=== PATIENT | female | born 1965 | race Caucasian/White ===

== ENCOUNTER 2017-05-23 19:05 | Emergency (ER) | payer OTHER ==
[~2017-05-23] VITALS: Ht 157.5 cm; Wt 81.0 kg
[~2017-05-23 19:05] MED LIST: ALPR0.5T8 PO; INSU100V12 SQ; METF500T4 PO; METO50 PO; OXYC-522 PO; OXYC-530 PO; VENL-67 PO; VITAD1000 PO
[2017-05-23] MEDS ORDERED: HYDR2 PO (19:12)
[2017-05-23] MEDS ORDERED: SODIUM CHLORIDE 0.9% 1,000 ML IV ONE (19:15)
[2017-05-23] MEDS ORDERED: INSULIN REGULAR, HUMAN 100 UNITS/ML IVP ONE (19:15)
[2017-05-23 19:47] LABS: BASOPHILS % (AUTO) 0.4 % (0.0-2.0); EOSINOPHILS % (AUTO) 1.3 % (1.0-6.0); HEMATOCRIT 34.3 % (36-46); HEMOGLOBIN 11.6 g/dL (12.0-16.0); LYMPHOCYTES # (AUTO) 2.4 K/uL (1.0-4.8); LYMPHOCYTES % (AUTO) 29.7 % (22.0-44.0); MEAN CORPUSCULAR HEMOGLOBIN 30.5 pg (26.0-34.0); MEAN CORPUSCULAR HGB CONC 33.7 G/dL (31.0-37.0); MEAN CORPUSCULAR VOLUME 90 fL (80-100); MONOCYTES # (AUTO) 0.3 K/uL (0.1-1.0); MONOCYTES % (AUTO) 3.8 % (2.0-9.0); NEUTROPHILS # (AUTO) 5.2 K/uL (1.8-7.7); NEUTROPHILS % (AUTO) 64.8 % (40.0-70.0); PLATELET COUNT (AUTO) 248 K/uL (150-450); RED BLOOD CELL COUNT(AUTO) 3.79 MIL/uL (4.00-5.20); RED CELL DISTRIBUTION WIDTH 13.7 % (11.5-14.5)
[2017-05-23 19:58] LABS: ANION GAP 15 mmol/L (8-16); CALCIUM, TOTAL 9.3 mg/dL (8.8-10.5); CARBON DIOXIDE 22 mmol/L (22-29); CHLORIDE 105 mmol/L (98-107); CREATININE 0.73 mg/dL (0.60-1.30); GLOMERULAR FILTR. RATE CALC > 60 mL/min (>60); POTASSIUM 3.4 mmol/L (3.5-5.1); SODIUM SERUM 142 mmol/L (136-145); UREA NITROGEN, BLOOD 7 mg/dL (7-18)
[2017-05-23 20:03] LABS: ALANINE AMINOTRANSFERASE 14 U/L (12-78); ALBUMIN 3.4 g/dL (3.4-5.0); ASPARTATE AMINOTRANSFERASE 21 U/L (15-37); BILIRUBIN,TOTAL 0.1 mg/dL (0.1-1.0); TOTAL PROTEIN, SERUM 7.6 g/dL (6.4-8.2)
[2017-05-23 20:15] LABS: APPEARANCE,URINE CLEAR (CLEAR); GLUCOSE, URINE (UA) >=1000 mg/dL (NEGATIVE); KETONES,URINE NEGATIVE (NEGATIVE); LEUKOCYTE ESTERASE ,URINE NEGATIVE (NEGATIVE); OCCULT BLOOD,URINE NEGATIVE (NEGATIVE); PH,URINE 6.5 (5.0-8.0); PROTEIN,URINE NEGATIVE (NEGATIVE)
[2017-05-23 20:16] LABS: ADD UA MICROSCOPIC YES
[2017-05-23 20:24] LABS: RBC,URINE 0-2 /HPF (0-2); SQUAMOUS EPITHELIAL CELL,UR Few /LPF (None Seen); WBC,URINE 0-2 /HPF (0-5)
[2017-05-23 22:22] VITALS: BP 129/80
[2017-05-24 10:01] LABS: GLUCOSE,POINT OF CARE 192 MG/DL (70-110)
== END 2017-05-23 22:25 | disposition home or self-care (01) ==
LOC: MERGE 19:06 → EMS 19:06
DX: G89.29 Other chronic pain (principal); M54.5 Low back pain; E11.65 Type 2 diabetes mellitus with hyperglycemia; F17.210 Nicotine dependence, cigarettes, uncomplicated; F41.9 Anxiety disorder, unspecified; F10.10 Alcohol abuse, uncomplicated; Z88.1 Allergy status to other antibiotic agents
CPT/HCPCS: 36415; 80053; 81001; 82962; 85025; 96361; 96374; 99284; 99406; G0480; J1815; J7030

== ENCOUNTER 2017-06-02 20:33 | Emergency (ER) | payer OTHER ==
[~2017-06-02] VITALS: Ht 165.1 cm; Wt 81.8 kg
[~2017-06-02 20:33] MED LIST changes: +HYDR2 PO
[2017-06-02] MEDS ORDERED: SODIUM CHLORIDE 0.9% 1,000 ML IV ONE (21:00)
[2017-06-02 21:29] LABS: BASOPHILS % (AUTO) 0.5 % (0.0-2.0); EOSINOPHILS % (AUTO) 1.5 % (1.0-6.0); HEMATOCRIT 37.2 % (36-46); HEMOGLOBIN 12.6 g/dL (12.0-16.0); LYMPHOCYTES # (AUTO) 2.6 K/uL (1.0-4.8); LYMPHOCYTES % (AUTO) 47.4 % (22.0-44.0); MEAN CORPUSCULAR HEMOGLOBIN 30.2 pg (26.0-34.0); MEAN CORPUSCULAR HGB CONC 33.8 G/dL (31.0-37.0); MEAN CORPUSCULAR VOLUME 89 fL (80-100); MONOCYTES # (AUTO) 0.2 K/uL (0.1-1.0); MONOCYTES % (AUTO) 3.8 % (2.0-9.0); NEUTROPHILS # (AUTO) 2.6 K/uL (1.8-7.7); NEUTROPHILS % (AUTO) 46.8 % (40.0-70.0); PLATELET COUNT (AUTO) 225 K/uL (150-450); RED BLOOD CELL COUNT(AUTO) 4.16 MIL/uL (4.00-5.20); RED CELL DISTRIBUTION WIDTH 14.2 % (11.5-14.5); WHITE BLOOD COUNT (AUTO) 5.5 K/uL (4.5-11.0)
[2017-06-02 21:36] LABS: PROTHROMBIN TIME 10.6 SEC (9.4-11.6)
[2017-06-02 21:37] LABS: ANION GAP 6 mmol/L (8-16); CALCIUM, TOTAL 8.5 mg/dL (8.8-10.5); CARBON DIOXIDE 31 mmol/L (22-29); CHLORIDE 106 mmol/L (98-107); GLOMERULAR FILTR. RATE CALC > 60 mL/min (>60); POTASSIUM 3.3 mmol/L (3.5-5.1); SODIUM SERUM 143 mmol/L (136-145); UREA NITROGEN, BLOOD 9 mg/dL (7-18)
[2017-06-02 21:43] LABS: ALANINE AMINOTRANSFERASE 35 U/L (12-78); ALBUMIN 3.2 g/dL (3.4-5.0); ASPARTATE AMINOTRANSFERASE 52 U/L (15-37); BILIRUBIN,TOTAL 0.2 mg/dL (0.1-1.0)
[2017-06-02 22:14] LABS: LACTIC ACID 2.3 mmol/L (0.4-2.0)
[2017-06-02 22:38] VITALS: BP 146/81
[2017-06-02 23:22] LABS: REFLEX LACTIC ACID? YES YES
== END 2017-06-02 22:53 | disposition home or self-care (01) ==
LOC: EMS 20:34 → MERGE 20:34 → EMS 22:53
DX: F10.129 Alcohol abuse with intoxication, unspecified (principal); E11.9 Type 2 diabetes mellitus without complications; I10 Essential (primary) hypertension; F17.210 Nicotine dependence, cigarettes, uncomplicated; Z88.1 Allergy status to other antibiotic agents; Z79.4 Long term (current) use of insulin
CPT/HCPCS: 36415; 80053; 83605; 83690; 85025; 85610; 96360; 99284; J7030

== ENCOUNTER 2017-06-06 03:53 | Emergency (ER) | payer OTHER ==
[~2017-06-06] VITALS: Ht 160 cm; Wt 77.0 kg
[2017-06-06] MEDS ORDERED: CloNIDine HCL 0.1 MG TABLET PO ONE (04:30)
[2017-06-06] MEDS ORDERED: PROMETHAZINE HCL 25 MG/ML VIAL IM ONE (04:30)
[2017-06-06] MEDS ORDERED: KETOROLAC TROMETHAMINE 30 MG/ML VIAL IM ONE (04:45)
[2017-06-06 06:04] VITALS: BP 127/75
[2017-06-06 09:11] LABS: GLUCOSE,POINT OF CARE 209 MG/DL (70-110)
== END 2017-06-06 06:07 | disposition home or self-care (01) ==
LOC: EMS 03:54 → MERGE 03:54 → EMS 06:07
DX: F11.23 Opioid dependence with withdrawal (principal); M54.5 Low back pain; G89.29 Other chronic pain; F17.210 Nicotine dependence, cigarettes, uncomplicated; E11.9 Type 2 diabetes mellitus without complications; I10 Essential (primary) hypertension; Z88.1 Allergy status to other antibiotic agents
CPT/HCPCS: 82962; 96372; 99284; J1885; J2550

== ENCOUNTER 2017-06-06 09:41 | Emergency (ER) | payer OTHER ==
[~2017-06-06] VITALS: Ht 160 cm; Wt 77.3 kg
[2017-06-06] MEDS ORDERED: ACETAMINOPHEN 325 MG TABLET PO ONE (10:00)
[2017-06-06 11:03] LABS: GLUCOSE,POINT OF CARE 332 MG/DL (70-110)
[2017-06-06 11:53] VITALS: BP 114/74
== END 2017-06-06 11:54 | disposition home or self-care (01) ==
LOC: MERGE 09:47 → EMS 09:47
DX: T51.91XA Toxic effect of unspecified alcohol, accidental (unintentional), initial encounter (principal); F10.129 Alcohol abuse with intoxication, unspecified; G89.29 Other chronic pain; M54.5 Low back pain; F17.210 Nicotine dependence, cigarettes, uncomplicated; F41.9 Anxiety disorder, unspecified; F32.9 Major depressive disorder, single episode, unspecified; E11.9 Type 2 diabetes mellitus without complications; I10 Essential (primary) hypertension; Z88.1 Allergy status to other antibiotic agents; Y92.89 Other specified places as the place of occurrence of the external cause
CPT/HCPCS: 82962; 99283

== ENCOUNTER 2017-06-06 15:09 | Emergency (ER) | payer OTHER ==
[~2017-06-06] VITALS: Ht 167.6 cm; Wt 67.0 kg
[2017-06-06] MEDS ORDERED: LIDOCAINE HCL 5% TRANSDERMAL PATCH TD ONE (20:00)
[2017-06-07 00:39] VITALS: BP 122/80
== END 2017-06-07 01:05 | disposition home or self-care (01) ==
LOC: EMS 15:10 → MERGE 15:10 → EMS 06-07 01:05
DX: F10.129 Alcohol abuse with intoxication, unspecified (principal); E11.9 Type 2 diabetes mellitus without complications; I10 Essential (primary) hypertension; F17.210 Nicotine dependence, cigarettes, uncomplicated; Z88.1 Allergy status to other antibiotic agents; Y90.8 Blood alcohol level of 240 mg/100 ml or more
CPT/HCPCS: 36415; 99284; G0480

== ENCOUNTER 2017-08-21 01:14 | Emergency (ER) | payer OTHER ==
[~2017-08-21] VITALS: Ht 165.1 cm; Wt 77.3 kg
[~2017-08-21 01:14] MED LIST changes: -OXYC-522 PO; -OXYC-530 PO; -VITAD1000 PO
[2017-08-21 01:33] LABS: GLUCOSE,POINT OF CARE 200 MG/DL (70-110)
[2017-08-21] MEDS ORDERED: MORPHINE SULFATE 4 MG/ML SYRINGE IM ONE (04:15)
[2017-08-21] MEDS ORDERED: ONDANSETRON HCL 4 MG/2 ML VIAL IM ONE (04:15)
[2017-08-21 05:22] VITALS: BP 124/63
== END 2017-08-21 06:33 | disposition home or self-care (01) ==
LOC: MERGE 01:16 → EMS 01:16
DX: S32.040A Wedge compression fracture of fourth lumbar vertebra, initial encounter for closed fracture (principal); S22.080A Wedge compression fracture of T11-T12 vertebra, initial encounter for closed fracture; S00.03XA Contusion of scalp, initial encounter; E11.9 Type 2 diabetes mellitus without complications; I10 Essential (primary) hypertension; F17.210 Nicotine dependence, cigarettes, uncomplicated; Z88.6 Allergy status to analgesic agent; W18.30XA Fall on same level, unspecified, initial encounter; Y93.89 Activity, other specified; Y92.89 Other specified places as the place of occurrence of the external cause; Y99.8 Other external cause status
CPT/HCPCS: 70450; 72100; 82962; 96372; 99284; J2270; J2405

== ENCOUNTER 2017-08-25 07:15 | Emergency (ER) | payer OTHER ==
[~2017-08-25] VITALS: Ht 167.6 cm; Wt 77.3 kg
[~2017-08-25 07:15] MED LIST changes: -METF500T4 PO
[2017-08-25] MEDS ORDERED: INSLAN SQ (07:25)
[2017-08-25] MEDS ORDERED: INSNOV SQ (07:25)
[2017-08-25] MEDS ORDERED: HYDR-309 PO (07:25)
[2017-08-25 07:27] LABS: GLUCOSE,POINT OF CARE 240 MG/DL (70-110)
[2017-08-25 07:58] LABS: BASOPHILS % (AUTO) 1.2 % (0.0-2.0); EOSINOPHILS % (AUTO) 2.3 % (1.0-6.0); HEMATOCRIT 36.3 % (36-46); HEMOGLOBIN 12.4 g/dL (12.0-16.0); LYMPHOCYTES # (AUTO) 2.9 K/uL (1.0-4.8); LYMPHOCYTES % (AUTO) 47.5 % (22.0-44.0); MEAN CORPUSCULAR HEMOGLOBIN 30.7 pg (26.0-34.0); MEAN CORPUSCULAR HGB CONC 34.2 G/dL (31.0-37.0); MEAN CORPUSCULAR VOLUME 90 fL (80-100); MONOCYTES # (AUTO) 0.3 K/uL (0.1-1.0); MONOCYTES % (AUTO) 4.3 % (2.0-9.0); NEUTROPHILS # (AUTO) 2.7 K/uL (1.8-7.7); NEUTROPHILS % (AUTO) 44.7 % (40.0-70.0); PLATELET COUNT (AUTO) 393 K/uL (150-450); RED BLOOD CELL COUNT(AUTO) 4.04 MIL/uL (4.00-5.20); RED CELL DISTRIBUTION WIDTH 16.7 % (11.5-14.5)
[2017-08-25] MEDS ORDERED: MAGNESIUM SULFATE 2 GM, MVI, ADULT NO.1 WITH VIT K 10 ML, THIAMINE HCL 100 MG, FOLIC AC... IV ONE ×5 (08:00)
[2017-08-25 08:05] LABS: AMPHET/METH SCREEN,URINE NEGATIVE (NEGATIVE); BARBITURATE SCREEN, URINE NEGATIVE (NEGATIVE); BENZODIAZEPINES SCREEN,URINE POSITIVE (NEGATIVE); CANNABINOID SCREEN,URINE NEGATIVE (NEGATIVE); COCAINE SCREEN,URINE NEGATIVE (NEGATIVE); METHADONE SCREEN, URINE NEGATIVE (NEGATIVE); OPIATE SCREEN,URINE POSITIVE (NEGATIVE)
[2017-08-25 08:07] LABS: PHENCYCLIDINE SCREEN,URINE NEGATIVE (NEGATIVE)
[2017-08-25 08:08] LABS: ANION GAP 11 mmol/L (8-16); CARBON DIOXIDE 27 mmol/L (22-29); CHLORIDE 107 mmol/L (98-107); GLOMERULAR FILTR. RATE CALC > 60 mL/min (>60); GLUCOSE,RANDOM 245 mg/dL (70-110); POTASSIUM 3.6 mmol/L (3.5-5.1); SODIUM SERUM 145 mmol/L (136-145); UREA NITROGEN, BLOOD 9 mg/dL (7-18)
[2017-08-25 08:14] LABS: ALANINE AMINOTRANSFERASE 22 U/L (12-78); ALBUMIN 3.5 g/dL (3.4-5.0); ALKALINE PHOSPHATASE 110 U/L (46-116); APPEARANCE,URINE CLOUDY (CLEAR); ASPARTATE AMINOTRANSFERASE 17 U/L (15-37); BILIRUBIN,TOTAL 0.2 mg/dL (0.1-1.0); BILIRUBIN,URINE NEGATIVE (NEGATIVE); GLUCOSE, URINE (UA) 500 mg/dL (NEGATIVE); KETONES,URINE NEGATIVE (NEGATIVE); LEUKOCYTE ESTERASE ,URINE TRACE (NEGATIVE); NITRATE,URINE POSITIVE (NEGATIVE); OCCULT BLOOD,URINE NEGATIVE (NEGATIVE); PROTEIN,URINE NEGATIVE (NEGATIVE); TOTAL PROTEIN, SERUM 8.1 g/dL (6.4-8.2); UROBILINOGEN,URINE 0.2 mg/dL (<=1.0)
[2017-08-25 08:25] LABS: BACTERIA,URINE Many /HPF (None Seen); RBC,URINE None Seen /HPF (0-2)
[2017-08-25 08:26] LABS: TRANSITIONAL EPI CELLS,URINE Rare /LPF (None Seen)
[2017-08-25] MEDS ORDERED: SODIUM CHLORIDE 0.9% 1,000 ML IV ONE (09:30)
[2017-08-25 11:53] VITALS: BP 155/89
== END 2017-08-25 13:43 | disposition home or self-care (01) ==
LOC: MERGE 07:17 → EMS 07:17
DX: S00.81XA Abrasion of other part of head, initial encounter (principal); F10.129 Alcohol abuse with intoxication, unspecified; F19.10 Other psychoactive substance abuse, uncomplicated; I10 Essential (primary) hypertension; E11.9 Type 2 diabetes mellitus without complications; F32.9 Major depressive disorder, single episode, unspecified; F41.9 Anxiety disorder, unspecified; G89.29 Other chronic pain; F17.210 Nicotine dependence, cigarettes, uncomplicated; Z79.4 Long term (current) use of insulin; W06.XXXA Fall from bed, initial encounter; Y93.89 Activity, other specified; Y92.89 Other specified places as the place of occurrence of the external cause; Y99.8 Other external cause status
CPT/HCPCS: 36415; 51702; 80053; 80307; 81001; 82962; 85025; 87077; 87086; 87186; 96365; 96366; 99285; G0480; J3411; J3475; J3490 ×2; J7030

== ENCOUNTER 2017-09-12 04:25 | Inpatient (IN) | payer MEDICAID, OTHER ==
[~2017-09-12] VITALS: Ht 160 cm; Wt 101.0 kg
[2017-09-12 04:37] LABS: GLUCOSE,POINT OF CARE 224 MG/DL (70-110)
[2017-09-12] MEDS ORDERED: LISI-660 PO (04:39)
[2017-09-12] MEDS ORDERED: METO25 PO (04:39)
[2017-09-12] MEDS ORDERED: INSNOV SQ (04:39)
[2017-09-12] MEDS ORDERED: INSLAN SQ (04:39)
[2017-09-12] MEDS ORDERED: GABA-533 PO (04:39)
[2017-09-12] MEDS ORDERED: CLON.5 PO (04:39)
[2017-09-12] MEDS ORDERED: MORPHINE SULFATE 4 MG/ML SYRINGE IM ONE (04:45)
[2017-09-12] MEDS ORDERED: CYCLOBENZAPRINE HCL 10 MG TABLET PO ONE (04:45)
[2017-09-12 06:14] LABS: BASOPHILS # (AUTO) 0.06 K/uL (0.00-0.20); BASOPHILS % (AUTO) 0.8 % (0.0-2.0); EOSINOPHILS # (AUTO) 0.09 K/uL (0.00-0.70); EOSINOPHILS % (AUTO) 1.27 % (1.0-6.0); HEMATOCRIT 31.6 % (36-46); HEMOGLOBIN 10.7 g/dL (12.0-16.0); LYMPHOCYTES # (AUTO) 2.2 K/uL (1.0-4.8); LYMPHOCYTES % (AUTO) 30.7 % (22.0-44.0); MEAN CORPUSCULAR HEMOGLOBIN 31.5 pg (26.0-34.0); MEAN CORPUSCULAR HGB CONC 33.8 G/dL (31.0-37.0); MEAN CORPUSCULAR VOLUME 93 fL (80-100); MONOCYTES # (AUTO) 0.5 K/uL (0.1-1.0); MONOCYTES % (AUTO) 6.4 % (2.0-9.0); NEUTROPHILS # (AUTO) 4.4 K/uL (1.8-7.7); NEUTROPHILS % (AUTO) 60.9 % (40.0-70.0); PLATELET COUNT (AUTO) 181 K/uL (150-450); RED CELL DISTRIBUTION WIDTH 16.9 % (11.5-14.5)
[2017-09-12 06:20] LABS: ANION GAP 7 mmol/L (8-16); CALCIUM, TOTAL 9.4 mg/dL (8.8-10.5); CARBON DIOXIDE 28 mmol/L (22-29); CHLORIDE 104 mmol/L (98-107); CREATININE 0.74 mg/dL (0.60-1.30); GLOMERULAR FILTR. RATE CALC > 60 mL/min (>60); GLUCOSE,RANDOM 197 mg/dL (70-110); POTASSIUM 3.9 mmol/L (3.5-5.1); SODIUM SERUM 139 mmol/L (136-145); UREA NITROGEN, BLOOD 16 mg/dL (7-18)
[2017-09-12 06:26] LABS: ALANINE AMINOTRANSFERASE 22 U/L (12-78); ALBUMIN 3.2 g/dL (3.4-5.0); ALKALINE PHOSPHATASE 96 U/L (46-116); ASPARTATE AMINOTRANSFERASE 24 U/L (15-37); BILIRUBIN,TOTAL 0.3 mg/dL (0.1-1.0); TOTAL PROTEIN, SERUM 6.6 g/dL (6.4-8.2)
[2017-09-12 07:04] LABS: AMPHET/METH SCREEN,URINE NEGATIVE (NEGATIVE); BARBITURATE SCREEN, URINE NEGATIVE (NEGATIVE); BENZODIAZEPINES SCREEN,URINE POSITIVE (NEGATIVE); CANNABINOID SCREEN,URINE NEGATIVE (NEGATIVE); COCAINE SCREEN,URINE NEGATIVE (NEGATIVE); METHADONE SCREEN, URINE NEGATIVE (NEGATIVE); OPIATE SCREEN,URINE POSITIVE (NEGATIVE); PHENCYCLIDINE SCREEN,URINE NEGATIVE (NEGATIVE)
[2017-09-12 09:02] LABS: GLUCOSE,POINT OF CARE 157 MG/DL (70-110)
[2017-09-12 10:40] VITALS: BP 135/65
[2017-09-12] MEDS ORDERED: DEXTROSE 50%-WATER 25 GM/50 ML SYRINGE IVP PRN (10:45)
[2017-09-12] MEDS ORDERED: INFLUENZA VIRUS VACCINE QVS 2017-18 (3YR+)/PF 60 MCG/0.5 ML SYRINGE IM ONE (11:00)
[2017-09-12 11:48] LABS: GLUCOSE,POINT OF CARE 234 MG/DL (70-110)
[2017-09-12] MEDS: INSULIN ASPART 100 UNITS/ML SQ PRN ×2 (11:50→21:30)
[2017-09-12] MEDS: NICOTINE 14 MG/24 HOUR PATCH TD SCH (12:00)
[2017-09-12] MEDS: METOPROLOL TARTRATE 25 MG TABLET PO SCH (18:04)
[2017-09-12] MEDS: LISINOPRIL 5 MG TABLET PO SCH (18:04)
[2017-09-12 18:05] VITALS: BP 139/80
[2017-09-12] MEDS: IBUPROFEN 400 MG TABLET PO PRN (18:06)
[2017-09-12 19:05] VITALS: BP 130/77
[2017-09-12 21:30] VITALS: BP 160/84
[2017-09-12 21:32] LABS: GLUCOMETER DEV NAME(LOC) 3EI B; GLUCOSE,POINT OF CARE 194 MG/DL (70-110)
[2017-09-12] MEDS: ACETAMINOPHEN 325 MG TABLET PO PRN (21:32)
[2017-09-12] MEDS: HALOPERIDOL 5 MG TABLET PO PRN (21:33)
[2017-09-12 22:30] VITALS: BP 148/80
[2017-09-12] MEDS: LORazepam 2 MG TABLET PO PRN (22:53)
[2017-09-13 00:05] VITALS: BP 158/88
[2017-09-13] MEDS: ZOLPIDEM TARTRATE 10 MG TABLET PO PRN (00:14)
[2017-09-13] MEDS: HALOPERIDOL 5 MG TABLET PO PRN ×4 (02:36→20:37)
[2017-09-13 05:38] LABS: GLUCOMETER DEV NAME(LOC) 3EI B; GLUCOSE,POINT OF CARE 218 MG/DL (70-110)
[2017-09-13] MEDS: INSULIN ASPART 100 UNITS/ML SQ PRN ×4 (06:41→20:42)
[2017-09-13 07:03] LABS: HEMOGLOBIN A1C 7.4 % (4.5-6.2)
[2017-09-13 07:42] LABS: CHOL/HDL RATIO 3.8 (3.9-5.7)
[2017-09-13] MEDS: METOPROLOL TARTRATE 25 MG TABLET PO SCH ×2 (08:34→16:21)
[2017-09-13] MEDS: NICOTINE 14 MG/24 HOUR PATCH TD SCH (08:34)
[2017-09-13] MEDS: LISINOPRIL 5 MG TABLET PO SCH ×2 (08:34→16:21)
[2017-09-13] MEDS: CITALOPRAM HYDROBROMIDE 20 MG TABLET PO SCH (08:34)
[2017-09-13 08:41] VITALS: BP 106/64
[2017-09-13] MEDS: IBUPROFEN 400 MG TABLET PO PRN ×2 (08:41→20:55)
[2017-09-13] MEDS: LORazepam 2 MG TABLET PO PRN ×3 (09:15→20:37)
[2017-09-13 11:42] LABS: GLUCOMETER DEV NAME(LOC) 3EI B; GLUCOSE,POINT OF CARE 144 MG/DL (70-110)
[2017-09-13 16:58] LABS: GLUCOMETER DEV NAME(LOC) 3EI B; GLUCOSE,POINT OF CARE 179 MG/DL (70-110)
[2017-09-13 20:42] LABS: GLUCOMETER DEV NAME(LOC) 3EI B; GLUCOSE,POINT OF CARE 177 MG/DL (70-110)
[2017-09-13 20:50] VITALS: BP 126/72
[2017-09-13 21:52] VITALS: BP 112/63
[2017-09-14] MEDS: ZOLPIDEM TARTRATE 10 MG TABLET PO PRN (00:04)
[2017-09-14] MEDS: LORazepam 2 MG TABLET PO PRN ×2 (01:10→10:11)
[2017-09-14 03:40] VITALS: BP 156/101
[2017-09-14] MEDS: ACETAMINOPHEN 325 MG TABLET PO PRN (03:44)
[2017-09-14 06:07] LABS: GLUCOMETER DEV NAME(LOC) 3EI B; GLUCOSE,POINT OF CARE 176 MG/DL (70-110)
[2017-09-14] MEDS: INSULIN ASPART 100 UNITS/ML SQ PRN ×2 (07:12→12:20)
[2017-09-14] MEDS: CITALOPRAM HYDROBROMIDE 20 MG TABLET PO SCH (08:22)
[2017-09-14] MEDS: METOPROLOL TARTRATE 25 MG TABLET PO SCH (08:22)
[2017-09-14] MEDS: LISINOPRIL 5 MG TABLET PO SCH (08:22)
[2017-09-14] MEDS: NICOTINE 14 MG/24 HOUR PATCH TD SCH (08:26)
[2017-09-14 08:30] VITALS: BP 171/115
[2017-09-14] MEDS: HALOPERIDOL 5 MG TABLET PO PRN (08:30)
[2017-09-14] MEDS: IBUPROFEN 400 MG TABLET PO PRN (08:30)
[2017-09-14 12:08] LABS: GLUCOMETER DEV NAME(LOC) 3EI B; GLUCOSE,POINT OF CARE 183 MG/DL (70-110)
[2017-09-14] MEDS ORDERED: CITA20TA9 PO (15:02)
== END 2017-09-14 16:30 | disposition home or self-care (01) | DRG 754 ==
LOC: EMS 04:26 → EDBD 04:26 → AHU 08:00 → 3EI 14:17
PROVIDERS: ADMIT Psychiatry & Neurology Psychiatry; ATTEND Psychiatry & Neurology Psychiatry
PROC: 3E0234Z Introduction of Serum, Toxoid and Vaccine into Muscle, Percutaneous Approach (ICD-10-PCS; principal; 2017-09-12)
DX: F32.9 Major depressive disorder, single episode, unspecified (principal); E11.40 Type 2 diabetes mellitus with diabetic neuropathy, unspecified; D64.9 Anemia, unspecified; F10.10 Alcohol abuse, uncomplicated; G89.29 Other chronic pain; M54.9 Dorsalgia, unspecified; I10 Essential (primary) hypertension; F17.210 Nicotine dependence, cigarettes, uncomplicated; F41.9 Anxiety disorder, unspecified; Z23 Encounter for immunization; Z88.1 Allergy status to other antibiotic agents
CPT/HCPCS: 72100; 73503; 82962; 83036; 96372; 99285; G0480; J2270

== ENCOUNTER 2017-09-15 17:14 | Emergency (ER) | payer OTHER ==
[~2017-09-15] VITALS: Ht 170.2 cm; Wt 81.8 kg
[~2017-09-15 17:14] MED LIST changes: +CITA20TA9 PO; +HYDR-309 PO; +INSLAN SQ; +INSNOV SQ; +LISI-660 PO; +METO25 PO
[2017-09-15] MEDS ORDERED: KETOROLAC TROMETHAMINE 60 MG/2 ML VIAL IM ONE ×2 (18:00)
[2017-09-15 18:49] VITALS: BP 103/57
== END 2017-09-15 19:06 | disposition home or self-care (01) ==
LOC: EMS 17:15 → MERGE 17:15 → EMS 19:06
DX: M54.42 Lumbago with sciatica, left side (principal); E11.9 Type 2 diabetes mellitus without complications; I10 Essential (primary) hypertension; F11.90 Opioid use, unspecified, uncomplicated; F19.90 Other psychoactive substance use, unspecified, uncomplicated; F17.210 Nicotine dependence, cigarettes, uncomplicated; Z88.1 Allergy status to other antibiotic agents
CPT/HCPCS: 96372; 99283; J1885

== ENCOUNTER 2017-09-18 01:10 | Emergency (ER) | payer OTHER ==
[~2017-09-18] VITALS: Ht 170.2 cm; Wt 77.3 kg
[~2017-09-18 01:10] MED LIST changes: -HYDR-309 PO; -METO50 PO
[2017-09-18] MEDS ORDERED: KETOROLAC TROMETHAMINE 60 MG/2 ML VIAL IM ONE (02:00)
[2017-09-18] MEDS ORDERED: MORPHINE SULFATE 4 MG/ML SYRINGE IM ONE (02:00)
[2017-09-18] MEDS ORDERED: MORPHINE SULFATE 2 MG/ML SYRINGE IM ONE (02:00)
[2017-09-18] MEDS ORDERED: PROMETHAZINE HCL 25 MG/ML VIAL IM ONE (02:00)
[2017-09-18 02:29] VITALS: BP 134/77
== END 2017-09-18 03:25 | disposition home or self-care (01) ==
LOC: MERGE 01:12 → EMS 01:12
DX: S30.0XXA Contusion of lower back and pelvis, initial encounter (principal); E11.65 Type 2 diabetes mellitus with hyperglycemia; M54.42 Lumbago with sciatica, left side; G89.29 Other chronic pain; F17.210 Nicotine dependence, cigarettes, uncomplicated; I10 Essential (primary) hypertension; F11.90 Opioid use, unspecified, uncomplicated; F13.90 Sedative, hypnotic, or anxiolytic use, unspecified, uncomplicated; Z88.5 Allergy status to narcotic agent; W19.XXXA Unspecified fall, initial encounter; Y93.89 Activity, other specified; Y92.89 Other specified places as the place of occurrence of the external cause; Y99.8 Other external cause status
CPT/HCPCS: 72100; 96372; 99284; J1885; J2270; J2550; 82962

== ENCOUNTER 2017-09-19 11:13 | Emergency (ER) | payer OTHER ==
[~2017-09-19] VITALS: Ht 165.1 cm; Wt 75.0 kg
[2017-09-19] MEDS ORDERED: CYCLOBENZAPRINE HCL 10 MG TABLET PO ONE (12:15)
[2017-09-19] MEDS ORDERED: KETOROLAC TROMETHAMINE 10 MG TABLET PO ONE (12:15)
[2017-09-19 13:44] VITALS: BP 154/71
== END 2017-09-19 13:45 | disposition home or self-care (01) ==
LOC: EMS 11:15 → MERGE 11:15 → EMS 13:45
DX: M54.5 Low back pain (principal); G89.29 Other chronic pain; E11.9 Type 2 diabetes mellitus without complications; I10 Essential (primary) hypertension; F17.210 Nicotine dependence, cigarettes, uncomplicated; Z76.5 Malingerer [conscious simulation]; Z88.1 Allergy status to other antibiotic agents; Z79.4 Long term (current) use of insulin
CPT/HCPCS: 82962; 99283

== ENCOUNTER 2017-10-02 09:54 | Emergency (ER) | payer OTHER ==
[~2017-10-02] VITALS: Ht 165.1 cm; Wt 72.0 kg
[~2017-10-02 09:54] MED LIST changes: -CITA20TA9 PO; -INSU100V12 SQ
[2017-10-02] MEDS ORDERED: GABA-533 PO (10:09)
[2017-10-02 10:11] VITALS: BP 134/96
[2017-10-02] MEDS ORDERED: HYDROmorphone 2 MG/ML SYRINGE IM ONE (10:15)
[2017-10-02 10:22] LABS: GLUCOSE,POINT OF CARE 188 MG/DL (70-110)
== END 2017-10-02 10:33 | disposition home or self-care (01) ==
LOC: EMS 09:57
DX: M54.5 Low back pain (principal); F41.9 Anxiety disorder, unspecified; G89.29 Other chronic pain; F32.9 Major depressive disorder, single episode, unspecified; E11.9 Type 2 diabetes mellitus without complications; I10 Essential (primary) hypertension; F17.210 Nicotine dependence, cigarettes, uncomplicated; Z88.1 Allergy status to other antibiotic agents; Z79.4 Long term (current) use of insulin
CPT/HCPCS: 82948; 82962; 96372; 99283; J1170

== ENCOUNTER 2017-10-05 07:35 | Emergency (ER) | payer OTHER ==
[~2017-10-05] VITALS: Ht 165.1 cm; Wt 79.5 kg
[~2017-10-05 07:35] MED LIST changes: +GABA-533 PO
[2017-10-05] MEDS ORDERED: ONDANSETRON HCL 4 MG/2 ML VIAL IVP ONE (09:15)
[2017-10-05] MEDS ORDERED: HYDROmorphone 2 MG/ML SYRINGE IVP ONE (09:15)
[2017-10-05 09:42] VITALS: BP 165/93
== END 2017-10-05 10:00 | disposition home or self-care (01) ==
LOC: EMS 07:36
DX: M54.32 Sciatica, left side (principal); M54.31 Sciatica, right side; I10 Essential (primary) hypertension; E11.9 Type 2 diabetes mellitus without complications; Z79.4 Long term (current) use of insulin; Z88.1 Allergy status to other antibiotic agents; R79.9 Abnormal finding of blood chemistry, unspecified
CPT/HCPCS: 82962; 96374; 96375; 99284; J1170; J2405

== ENCOUNTER 2017-10-06 09:03 | Emergency (ER) | payer OTHER ==
[~2017-10-06] VITALS: Ht 167.6 cm; Wt 86.4 kg
[~2017-10-06 09:03] MED LIST changes: -ALPR0.5T8 PO
[2017-10-06 09:28] LABS: GLUCOSE,POINT OF CARE 260 MG/DL (70-110)
[2017-10-06] MEDS ORDERED: OxyCODONE HCL/ACETAMINOPHEN 5-325 MG TABLET PO ONE (10:15)
[2017-10-06] MEDS ORDERED: HYDROmorphone 2 MG/ML SYRINGE IM ONE (11:00)
[2017-10-06] MEDS ORDERED: ONDANSETRON HCL 4 MG/2 ML VIAL IM ONE (11:00)
[2017-10-06] MEDS ORDERED: LIDOCAINE HCL/PF 1% 2 ML VIAL IM ONE (11:15)
[2017-10-06] MEDS ORDERED: CefTRIAXone SODIUM 1 GM/VIAL IM ONE (11:15)
[2017-10-06 12:23] VITALS: BP 137/84
== END 2017-10-06 12:31 | disposition home or self-care (01) ==
LOC: EMS 09:04
DX: N39.0 Urinary tract infection, site not specified (principal); G89.29 Other chronic pain; M54.5 Low back pain; F17.210 Nicotine dependence, cigarettes, uncomplicated; I10 Essential (primary) hypertension; E11.9 Type 2 diabetes mellitus without complications; Z88.1 Allergy status to other antibiotic agents; Z79.4 Long term (current) use of insulin
CPT/HCPCS: 82962; 96372; 99284; J0696; J1170; J2405; J3490

== ENCOUNTER 2017-10-12 17:35 | Inpatient (IN) | payer MEDICAID, OTHER ==
[~2017-10-12] VITALS: Ht 165.1 cm; Wt 77.5 kg
[2017-10-12 19:58] LABS: BASOPHILS % (AUTO) 1.1 % (0.0-2.0); EOSINOPHILS % (AUTO) 2.3 % (1.0-6.0); HEMATOCRIT 35.8 % (36-46); HEMOGLOBIN 12.3 g/dL (12.0-16.0); LYMPHOCYTES # (AUTO) 2.9 K/uL (1.0-4.8); LYMPHOCYTES % (AUTO) 42.2 % (22.0-44.0); MEAN CORPUSCULAR HEMOGLOBIN 31.3 pg (26.0-34.0); MEAN CORPUSCULAR HGB CONC 34.5 G/dL (31.0-37.0); MEAN CORPUSCULAR VOLUME 91 fL (80-100); MONOCYTES # (AUTO) 0.3 K/uL (0.1-1.0); MONOCYTES % (AUTO) 4.7 % (2.0-9.0); NEUTROPHILS # (AUTO) 3.4 K/uL (1.8-7.7); NEUTROPHILS % (AUTO) 49.7 % (40.0-70.0); PLATELET COUNT (AUTO) 192 K/uL (150-450); RED BLOOD CELL COUNT(AUTO) 3.95 MIL/uL (4.00-5.20)
[2017-10-12 20:25] LABS: SALICYLATE 4.5 mg/dL (2.8-20.0)
[2017-10-12 20:27] LABS: ANION GAP 13 mmol/L (8-16); CALCIUM, TOTAL 9.1 mg/dL (8.8-10.5); CARBON DIOXIDE 24 mmol/L (22-29); CHLORIDE 106 mmol/L (98-107); CREATININE 0.66 mg/dL (0.60-1.30); GLOMERULAR FILTR. RATE CALC > 60 mL/min (>60); GLUCOSE,RANDOM 268 mg/dL (70-110); POTASSIUM 3.6 mmol/L (3.5-5.1); SODIUM SERUM 143 mmol/L (136-145); UREA NITROGEN, BLOOD 11 mg/dL (7-18)
[2017-10-12 20:30] LABS: ALANINE AMINOTRANSFERASE 24 U/L (12-78); ALBUMIN 3.4 g/dL (3.4-5.0); ALKALINE PHOSPHATASE 104 U/L (46-116); ASPARTATE AMINOTRANSFERASE 18 U/L (15-37); BILIRUBIN,TOTAL 0.1 mg/dL (0.1-1.0); TOTAL PROTEIN, SERUM 6.6 g/dL (6.4-8.2)
[2017-10-12 20:31] LABS: ACETAMINOPHEN < 2 mcg/mL (10-30)
[2017-10-12] MEDS ORDERED: HALOPERIDOL 5 MG TABLET PO PRN (21:00)
[2017-10-12] MEDS ORDERED: ZOLPIDEM TARTRATE 10 MG TABLET PO PRN ×2 (21:00→21:45)
[2017-10-12] MEDS ORDERED: LORazepam 2 MG TABLET PO PRN (21:00)
[2017-10-12 21:19] LABS: AMPHET/METH SCREEN,URINE NEGATIVE (NEGATIVE); BARBITURATE SCREEN, URINE NEGATIVE (NEGATIVE); BENZODIAZEPINES SCREEN,URINE NEGATIVE (NEGATIVE); CANNABINOID SCREEN,URINE NEGATIVE (NEGATIVE); COCAINE SCREEN,URINE NEGATIVE (NEGATIVE); METHADONE SCREEN, URINE NEGATIVE (NEGATIVE); OPIATE SCREEN,URINE NEGATIVE (NEGATIVE)
[2017-10-12 21:20] LABS: PHENCYCLIDINE SCREEN,URINE NEGATIVE (NEGATIVE)
[2017-10-13] MEDS ORDERED: IBUPROFEN 600 MG TABLET PO ONE (02:15)
[2017-10-13 06:02] LABS: GLUCOSE,POINT OF CARE 161 MG/DL (70-110)
[2017-10-13] MEDS: LORazepam 2 MG TABLET PO PRN (06:27)
[2017-10-13 06:40] LABS: CHOL/HDL RATIO 2.9 (3.9-5.7)
[2017-10-13 10:18] LABS: GLUCOSE,POINT OF CARE 151 MG/DL (70-110)
[2017-10-13] MEDS ORDERED: PNEUMOCOCCAL VACCINE POLYVALENT 0.5 ML VIAL [PPSV23] IM ONE (12:45)
[2017-10-13] MEDS ORDERED: INFLUENZA VIRUS VACCINE QVS 2017-18 (3YR+)/PF 60 MCG/0.5 ML SYRINGE IM ONE (12:45)
[2017-10-13] MEDS: NICOTINE 14 MG/24 HOUR PATCH TD SCH (15:24)
[2017-10-13 17:48] LABS: GLUCOSE,POINT OF CARE 180 MG/DL (70-110)
[2017-10-13] MEDS: INSULIN ASPART 100 UNITS/ML SQ SCH (17:48)
[2017-10-13 18:03] VITALS: BP 128/73
[2017-10-13] MEDS ORDERED: ACETAMINOPHEN 325 MG TABLET PO PRN (20:15)
[2017-10-13] MEDS: IBUPROFEN 400 MG TABLET PO PRN (20:44)
[2017-10-13 20:45] VITALS: BP 131/83
[2017-10-13] MEDS: LISINOPRIL 5 MG TABLET PO SCH (20:48)
[2017-10-13] MEDS: METOPROLOL TARTRATE 25 MG TABLET PO SCH (20:48)
[2017-10-13] MEDS: INSULIN DETEMIR 100 UNITS/ML SQ SCH (20:49)
[2017-10-13] MEDS ORDERED: LISINOPRIL 5 MG TABLET PO SCH (21:00)
[2017-10-13] MEDS ORDERED: METOPROLOL TARTRATE 25 MG TABLET PO SCH (21:00)
[2017-10-13 21:03] LABS: GLUCOSE,POINT OF CARE 128 MG/DL (70-110)
[2017-10-14] MEDS: IBUPROFEN 400 MG TABLET PO PRN (02:48)
[2017-10-14] MEDS: LORazepam 2 MG TABLET PO PRN ×3 (04:11→22:41)
[2017-10-14] MEDS: HALOPERIDOL 5 MG TABLET PO PRN ×3 (04:11→22:41)
[2017-10-14 06:28] LABS: GLUCOSE,POINT OF CARE 129 MG/DL (70-110)
[2017-10-14] MEDS: INSULIN ASPART 100 UNITS/ML SQ SCH ×3 (06:35→17:18)
[2017-10-14 08:27] VITALS: BP 125/81
[2017-10-14] MEDS: NICOTINE 14 MG/24 HOUR PATCH TD SCH (09:27)
[2017-10-14] MEDS: LISINOPRIL 5 MG TABLET PO SCH ×2 (09:28→17:27)
[2017-10-14] MEDS: METOPROLOL TARTRATE 25 MG TABLET PO SCH ×2 (09:28→17:28)
[2017-10-14 12:23] LABS: GLUCOSE,POINT OF CARE 152 MG/DL (70-110)
[2017-10-14 14:30] VITALS: BP 158/78
[2017-10-14 17:24] LABS: GLUCOMETER DEV NAME(LOC) 3EI B; GLUCOSE,POINT OF CARE 166 MG/DL (70-110)
[2017-10-14] MEDS: INSULIN DETEMIR 100 UNITS/ML SQ SCH (21:00)
[2017-10-14 21:58] VITALS: BP 162/74
[2017-10-15] VITALS: BP 130/104
[2017-10-15] MEDS: IBUPROFEN 400 MG TABLET PO PRN ×2 (00:06→10:18)
[2017-10-15] MEDS: LORazepam 2 MG TABLET PO PRN ×2 (03:15→10:18)
[2017-10-15 05:33] LABS: GLUCOMETER DEV NAME(LOC) 3EI B; GLUCOSE,POINT OF CARE 207 MG/DL (70-110)
[2017-10-15] MEDS ORDERED: INFLUENZA VIRUS VACCINE QVS 2017-18 (3YR+)/PF 60 MCG/0.5 ML SYRINGE IM ONE (07:00)
[2017-10-15] MEDS: INSULIN ASPART 100 UNITS/ML SQ SCH ×3 (07:00→17:00)
[2017-10-15] MEDS ORDERED: PNEUMOCOCCAL VACCINE POLYVALENT 0.5 ML VIAL [PPSV23] IM ONE (07:00)
[2017-10-15] MEDS ORDERED: VENLAFAXINE HCL 75 MG ER CAPSULE PO SCH (09:00)
[2017-10-15 09:13] VITALS: BP 167/96
[2017-10-15] MEDS: METOPROLOL TARTRATE 25 MG TABLET PO SCH ×2 (10:17→16:42)
[2017-10-15] MEDS: LISINOPRIL 5 MG TABLET PO SCH ×2 (10:17→16:43)
[2017-10-15] MEDS: HALOPERIDOL 5 MG TABLET PO PRN (10:18)
[2017-10-15] MEDS: NICOTINE 14 MG/24 HOUR PATCH TD SCH (10:19)
[2017-10-15 11:37] LABS: GLUCOMETER DEV NAME(LOC) 3EI B; GLUCOSE,POINT OF CARE 185 MG/DL (70-110)
== END 2017-10-15 18:15 | disposition home or self-care (01) | DRG 754 ==
LOC: EMS 17:36 → AHU 10-13 08:13 → 3EI 10-14 14:22
PROVIDERS: ADMIT Psychiatry & Neurology Psychiatry; ATTEND Psychiatry & Neurology Psychiatry
PROC: 3E0234Z Introduction of Serum, Toxoid and Vaccine into Muscle, Percutaneous Approach (ICD-10-PCS; principal; 2017-10-15)
DX: F32.9 Major depressive disorder, single episode, unspecified (principal); E11.9 Type 2 diabetes mellitus without complications; I10 Essential (primary) hypertension; E78.5 Hyperlipidemia, unspecified; F41.9 Anxiety disorder, unspecified; T42.6X2A Poisoning by other antiepileptic and sedative-hypnotic drugs, intentional self-harm, initial encounter; F17.210 Nicotine dependence, cigarettes, uncomplicated; G89.29 Other chronic pain; M54.9 Dorsalgia, unspecified; Y92.89 Other specified places as the place of occurrence of the external cause; Z88.1 Allergy status to other antibiotic agents; Z79.4 Long term (current) use of insulin; Z79.899 Other long term (current) drug therapy; Z23 Encounter for immunization
CPT/HCPCS: 82962; 87081; 99285; 99406; G0480; G0481; J1815

== ENCOUNTER 2017-10-16 00:01 | Emergency (ER) | payer MEDICAID, OTHER ==
[~2017-10-16] VITALS: Ht 167.6 cm; Wt 77.3 kg
[2017-10-16] MEDS ORDERED: KETOROLAC TROMETHAMINE 60 MG/2 ML VIAL IM ONE (04:30)
[2017-10-16] MEDS ORDERED: TraMADol HCL 50 MG TABLET PO ONE (04:30)
[2017-10-16] MEDS ORDERED: ONDANSETRON HCL 4 MG/2 ML VIAL IM ONE (04:30)
[2017-10-16 04:40] VITALS: BP 165/83
== END 2017-10-16 05:01 | disposition home or self-care (01) ==
LOC: EMS 00:03
DX: M54.5 Low back pain (principal); G89.29 Other chronic pain; E11.9 Type 2 diabetes mellitus without complications; I10 Essential (primary) hypertension; F17.210 Nicotine dependence, cigarettes, uncomplicated; Z88.1 Allergy status to other antibiotic agents
CPT/HCPCS: 96372; 99284; 99406; J1885; J2405

== ENCOUNTER 2017-10-19 21:10 | Emergency (ER) | payer OTHER ==
[~2017-10-19] VITALS: Ht 165.1 cm; Wt 68.2 kg
[~2017-10-19 21:10] MED LIST changes: -GABA-533 PO; -HYDR2 PO; -INSLAN SQ; -INSNOV SQ
[2017-10-19] MEDS ORDERED: SODIUM CHLORIDE 0.9% 2,000 ML IV ONE (21:16)
[2017-10-19 21:43] LABS: BASOPHILS % (AUTO) 1.3 % (0.0-2.0); EOSINOPHILS % (AUTO) 1.8 % (1.0-6.0); HEMATOCRIT 40.3 % (36-46); HEMOGLOBIN 13.7 g/dL (12.0-16.0); LYMPHOCYTES # (AUTO) 3.5 K/uL (1.0-4.8); LYMPHOCYTES % (AUTO) 49.5 % (22.0-44.0); MEAN CORPUSCULAR HEMOGLOBIN 31.1 pg (26.0-34.0); MEAN CORPUSCULAR HGB CONC 34.1 G/dL (31.0-37.0); MEAN CORPUSCULAR VOLUME 91 fL (80-100); MONOCYTES # (AUTO) 0.4 K/uL (0.1-1.0); MONOCYTES % (AUTO) 5.6 % (2.0-9.0); NEUTROPHILS % (AUTO) 41.8 % (40.0-70.0); PLATELET COUNT (AUTO) 255 K/uL (150-450); RED BLOOD CELL COUNT(AUTO) 4.42 MIL/uL (4.00-5.20); RED CELL DISTRIBUTION WIDTH 14.7 % (11.5-14.5)
[2017-10-19 21:43] LABS: GLUCOSE,POINT OF CARE 308 MG/DL (70-110)
[2017-10-19 21:55] LABS: ANION GAP 16 mmol/L (8-16); CALCIUM, TOTAL 9.9 mg/dL (8.8-10.5); CARBON DIOXIDE 23 mmol/L (22-29); CHLORIDE 103 mmol/L (98-107); CREATININE 0.79 mg/dL (0.60-1.30); GLOMERULAR FILTR. RATE CALC > 60 mL/min (>60); GLUCOSE,RANDOM 340 mg/dL (70-110); POTASSIUM 3.5 mmol/L (3.5-5.1); SODIUM SERUM 142 mmol/L (136-145); UREA NITROGEN, BLOOD 10 mg/dL (7-18)
[2017-10-19 22:00] LABS: B-TYPE NATRIURETIC PEPTIDE 14 pg/mL (0-100)
[2017-10-19 22:01] LABS: ALANINE AMINOTRANSFERASE 28 U/L (12-78); ALBUMIN 3.9 g/dL (3.4-5.0); ALKALINE PHOSPHATASE 137 U/L (46-116); ASPARTATE AMINOTRANSFERASE 15 U/L (15-37); BILIRUBIN,TOTAL 0.3 mg/dL (0.1-1.0); LIPASE 191 U/L (73-393); TOTAL PROTEIN, SERUM 7.8 g/dL (6.4-8.2)
[2017-10-20 00:53] LABS: GLUCOSE,POINT OF CARE 256 MG/DL (70-110)
[2017-10-20 02:04] VITALS: BP 120/65
== END 2017-10-20 02:37 | disposition home or self-care (01) ==
LOC: EMS 21:15
DX: F10.129 Alcohol abuse with intoxication, unspecified (principal); F17.210 Nicotine dependence, cigarettes, uncomplicated; I10 Essential (primary) hypertension; E11.65 Type 2 diabetes mellitus with hyperglycemia; Z88.1 Allergy status to other antibiotic agents; Z91.14 Patient's other noncompliance with medication regimen; Y90.8 Blood alcohol level of 240 mg/100 ml or more
CPT/HCPCS: 80053; 82962; 83690; 83880; 84484; 85025; 99284; 99406; G0480; J7030

== ENCOUNTER 2017-10-29 02:04 | Emergency (ER) | payer MEDICAID, OTHER ==
[~2017-10-29] VITALS: Ht 165.1 cm; Wt 75.0 kg
[2017-10-29] MEDS ORDERED: NAPROXEN 250 MG TABLET PO ONE (05:30)
[2017-10-29] MEDS ORDERED: LORazepam 1 MG TABLET PO ONE (05:30)
[2017-10-29] MEDS ORDERED: HYDROmorphone HCL 2 MG TABLET PO ONE (05:30)
[2017-10-29 05:51] VITALS: BP 122/68
[2017-10-29 06:12] LABS: APPEARANCE,URINE CLOUDY (CLEAR); BILIRUBIN,URINE NEGATIVE (NEGATIVE); GLUCOSE, URINE (UA) 250 mg/dL (NEGATIVE); KETONES,URINE NEGATIVE (NEGATIVE); LEUKOCYTE ESTERASE ,URINE NEGATIVE (NEGATIVE); NITRATE,URINE POSITIVE (NEGATIVE); OCCULT BLOOD,URINE NEGATIVE (NEGATIVE); PH,URINE 5.5 (5.0-8.0); PROTEIN,URINE NEGATIVE (NEGATIVE); UROBILINOGEN,URINE 0.2 mg/dL (<=1.0)
[2017-10-29 06:22] LABS: BACTERIA,URINE Moderate /HPF (None Seen); RBC,URINE 0-2 /HPF (0-2); SQUAMOUS EPITHELIAL CELL,UR Moderate /LPF (None Seen)
== END 2017-10-29 06:38 | disposition home or self-care (01) ==
LOC: EMS 02:05
DX: N39.0 Urinary tract infection, site not specified (principal); G89.29 Other chronic pain; M54.5 Low back pain; F11.20 Opioid dependence, uncomplicated; F32.9 Major depressive disorder, single episode, unspecified; E11.9 Type 2 diabetes mellitus without complications; I10 Essential (primary) hypertension; F17.210 Nicotine dependence, cigarettes, uncomplicated; Z88.1 Allergy status to other antibiotic agents; Z79.899 Other long term (current) drug therapy; Z98.890 Other specified postprocedural states
CPT/HCPCS: 87086; 99284